=== PATIENT | female | born 1970 | race Caucasian/White ===

== ENCOUNTER 2017-03-15 05:31 | Emergency (ER) | payer MEDICARE, MEDICAID ==
[2017-03-15 05:51] VITALS: BP 156/96
--- NOTE | 2017-03-15 06:34 | EDM.PDOC ---
ED HPI GENERAL MEDICAL PROBLEM - General Chief Complaint: Respiratory Problem Stated Complaint: TROUBLE BREATHING Time Seen by Provider: 03/15/17 05:45 Source of Information: Reports: Patient, Family History Limitations: Reports: No Limitations - History of Present Illness INITIAL COMMENTS - FREE TEXT/NARRATIVE: 46 years old w f came to the ed with her SO unable to sleep. Pt is snooring loud at nigh and stops breathing a t times. She is "twitching" intermittently. Pt drinks and smokes daily, uses THC products. Pt is a poor historian, no other acute medical issues. Onset: Gradual Onset Date: 03/12/17 Onset Time: 23:00 Duration: Day(s): Location: Reports: Generalized Severity: Mild Improves with: Reports: None Worsens with: Reports: None Associated Symptoms: Reports: Cough Neck Pain Score (Numeric/FACES): 10 - Related Data Allergies Allergy/AdvReac Type Severity Reaction Status Date / Time No Known Allergies Allergy Verified 03/15/17 05:44 Home Meds: Home Meds Gabapentin [Gabapentin] 03/15/17 [History] Methylphenidate [Ritalin] 20 mg PO TID 03/15/17 [History] Pregabalin [Lyrica] 150 mg PO DAILY 03/15/17 [History] Zolpidem [Ambien] 10 mg PO BEDTIME 03/15/17 [History] buPROPion [Wellbutrin XL] 150 mg PO DAILY 03/15/17 [History] Past Medical History [facility] History: Reports: , Other (See Below) Other OB/BYN History: elective abortions x 2 Musculoskeletal History: Reports: Fracture Neurological History: Reports: Migraines Psychiatric History: Reports: Anxiety, Bipolar, Depression, Panic Attack - Infectious Disease History Infectious Disease History: Reports: Hepatitis C - Past Surgical History GI Surgical History: Reports: Cholecystectomy Social & Family History - Family History Family Medical History: Noncontributory - Tobacco Use Smoking Status *Q: Current Every Day Smoker Years of Tobacco use: 30 Packs/Tins Daily: 2 Second Hand Smoke Exposure: Yes - Caffeine Use Caffeine Use: Reports: Coffee - Alcohol Use Days Per Week of Alcohol Use: 1 Number of Drinks Per Day: 12 Total Drinks Per Week: 12 - Recreational Drug Use Recreational Drug Use: No ED ROS GENERAL - Review of Systems Review Of Systems: See Below Constitutional: Reports: No Symptoms HEENT: Reports: No Symptoms Respiratory: Reports: Cough Cardiovascular: Reports: No Symptoms Endocrine: Reports: No Symptoms GI/Abdominal: Reports: No Symptoms : Reports: No Symptoms Musculoskeletal: Reports: No Symptoms Skin: Reports: No Symptoms Neurological: Reports: No Symptoms Psychiatric: Reports: No Symptoms Hematologic/Lymphatic: Reports: No Symptoms Immunologic: Reports: No Symptoms ED EXAM, GENERAL - Physical Exam Exam: See Below Exam Limited By: No Limitations General Appearance: Obese (morbid) Eye Exam: Bilateral Eye: Normal Inspection Ears: Normal External Exam Ear Exam: Bilateral Ear: Auricle Normal Nose: Normal Inspection, Normal Mucosa Throat/Mouth: Normal Inspection Head: Atraumatic Neck: Normal Inspection Respiratory/Chest: No Respiratory Distress, Lungs Clear, Normal Breath Sounds Cardiovascular: Tachycardia Peripheral Pulses: 1+: Femoral (L), Femoral (R) GI/Abdominal: Normal Bowel Sounds (Female) Exam: Deferred Rectal (Female) Exam: Deferred Back Exam: Normal Inspection, Full Range of Motion Extremities: Normal Inspection, Normal Range of Motion Neurological: Alert, Oriented, CN II-XII Intact, Normal Cognition, Normal Gait Psychiatric: Anxious Skin Exam: Warm, Dry, Intact, Normal Color, No Rash Lymphatic: No Adenopathy Course - Vital Signs Text/Narrative:: 46 years old w f came to the ed with her SO unable to sleep. Pt is snoring loud at nigh and stops breathing a t times. She is "twitching" intermittently. Pt drinks and smokes daily, uses THC products. Pt is a poor historian, no other acute medical issues. PE: Morbid obese, anxious, dry mucodal membranes Labs: Potassium was 3.1 CBC 12.5 UDS + THC Impression: Dehydration, Hypokalemia, anxiety Tx: Potassium, water po. Reexam: improved, HR still 117,pt refused ECG, NS or further w/u Plan: D/C with instructions Last Recorded V/S: Last Vital Signs Temp 37.3 C 03/15/17 05:45 Pulse 117 H 03/15/17 08:19 Resp 28 H 03/15/17 05:45 BP 156/96 H 03/15/17 05:45 Pulse Ox 94 L 03/15/17 05:45 - Orders/Labs/Meds Labs: Laboratory Tests 05/29/17 05/29/17 05/29/17 Range/Units 06:15 06:15 06:50 WBC 12.2 H (4.5-12.0) X10-3/uL RBC 3.69 (3.23-5.20) x10(6)uL Hgb 11.3 L (11.5-15.5) g/dL Hct 33.3 (30.0-51.3) % MCV 90.4 (80-96) fL MCH 30.7 (27.7-33.6) pg MCHC 34.0 (32.2-35.4) g/dL RDW 14.0 (11.5-15.5) % Plt Count 270 (125-369) X10(3)uL MPV 7.2 L (7.4-10.4) fL Add Manual Diff Yes Neutrophils % (Manual) 81 (46-82) % Lymphocytes % (Manual) 11 L (13-37) % Monocytes % (Manual) 5 (4-12) % Eosinophils % (Manual) 1 (0-5) % Basophils % (Manual) 2 (0-2) % Sodium (135-145) mmol/L Potassium (3.5-5.3) mmol/L Chloride (100-110) mmol/L Carbon Dioxide (23-29) mmol/L BUN (5-20) mg/dL Creatinine (0.6-1.3) mg/dL Est Cr Clr Drug Dosing mL/min Estimated GFR (MDRD) (>60) BUN/Creatinine Ratio (9-20) Glucose (80-116) mg/dL Calcium (8.6-10.2) mg/dL B-Natriuretic Peptide (0-100) pg/mL Urine Color Yellow (YELLOW) Urine Appearance Clear (CLEAR) Urine pH 6.0 (5.0-6.5) Ur Specific [place] 1.015 (1.010-1.025) Urine Protein Negative (NEGATIVE) mg/dL Urine Glucose (UA) Normal (NEGATIVE) mg/dL Urine Ketones Negative (NEGATIVE) mg/dL Urine Occult Blood Large H (NEGATIVE) Urine Nitrite Negative (NEGATIVE) Urine Bilirubin Negative (NEGATIVE) Urine Urobilinogen Normal (NEGATIVE) mg/dL Ur Leukocyte Esterase Negative (NEGATIVE) Urine RBC 30-40 H (0) Urine WBC 0-5 (0) Ur Squamous Epith Cells Few H (NS,R,O) Urine Bacteria Few H (NS) Urine Opiates Screen Negative (NEGATIVE) Ur Oxycodone Screen Negative (NEGATIVE) Ur Propoxyphene Screen Negative (NEGATIVE) Ur Barbituates Screen Negative (NEGATIVE) Ur Tricyclics Screen Negative (NEGATIVE) Ur Phencyclidine Scrn Negative (NEGATIVE) Ur Amphetamine Screen Negative (NEGATIVE) Urine MDMA Screen Negative (NEGATIVE) U Benzodiazepines Scrn Negative (NEGATIVE) U Cocaine Metab Screen Negative (NEGATIVE) U Marijuana (THC) Screen Positive H (NEGATIVE) Ethyl Alcohol (<0.01) % 03/15/17 03/15/17 03/15/17 Range/Units 06:50 06:50 06:50 WBC (4.5-12.0) X10-3/uL RBC (3.23-5.20) x10(6)uL Hgb (11.5-15.5) g/dL Hct (30.0-51.3) % MCV (80-96) fL MCH (27.7-33.6) pg MCHC (32.2-35.4) g/dL RDW (11.5-15.5) % Plt Count (125-369) X10(3)uL MPV (7.4-10.4) fL Add Manual Diff Neutrophils % (Manual) (46-82) % Lymphocytes % (Manual) (13-37) % Monocytes % (Manual) (4-12) % Eosinophils % (Manual) (0-5) % Basophils % (Manual) (0-2) % Sodium 137 (135-145) mmol/L Potassium 3.1 L (3.5-5.3) mmol/L Chloride 106 (100-110) mmol/L Carbon Dioxide 23 (23-29) mmol/L BUN 6 (5-20) mg/dL Creatinine 0.6 (0.6-1.3) mg/dL Est Cr Clr Drug Dosing 89.35 mL/min Estimated GFR (MDRD) > 60 (>60) BUN/Creatinine Ratio 10.0 (9-20) Glucose 123 H (80-116) mg/dL Calcium 8.8 (8.6-10.2) mg/dL B-Natriuretic Peptide 271 H (0-100) pg/mL Urine Color (YELLOW) Urine Appearance (CLEAR) Urine pH (5.0-6.5) Ur Specific [place] (1.010-1.025) Urine Protein (NEGATIVE) mg/dL Urine Glucose (UA) (NEGATIVE) mg/dL Urine Ketones (NEGATIVE) mg/dL Urine Occult Blood (NEGATIVE) Urine Nitrite (NEGATIVE) Urine Bilirubin (NEGATIVE) Urine Urobilinogen (NEGATIVE) mg/dL Ur Leukocyte Esterase (NEGATIVE) Urine RBC (0) Urine WBC (0) Ur Squamous Epith Cells (NS,R,O) Urine Bacteria (NS) Urine Opiates Screen (NEGATIVE) Ur Oxycodone Screen (NEGATIVE) Ur Propoxyphene Screen (NEGATIVE) Ur Barbituates Screen (NEGATIVE) Ur Tricyclics Screen (NEGATIVE) Ur Phencyclidine Scrn (NEGATIVE) Ur Amphetamine Screen (NEGATIVE) Urine MDMA Screen (NEGATIVE) U Benzodiazepines Scrn (NEGATIVE) U Cocaine Metab Screen (NEGATIVE) U Marijuana (THC) Screen (NEGATIVE) Ethyl Alcohol < 0.01 (<0.01) % Meds: Medications Discontinued Medications Generic Name Dose Route Start Last Admin Trade Name Freq PRN Reason Stop Dose Admin Potassium Chloride 40 meq 03/15/17 07:59 03/15/17 08:16 Klor-Con M20 PO 03/15/17 08:00 40 meq ONETIME ONE Administration Departure - Departure Time of Disposition: 08:00 Disposition: Home, Self-Care 01 Condition: good Clinical Impression: Hypokalemia, Sleep apnea, Tachycardia, Dehydration - Discharge Information Referrals: PCP,Not In Area [Primary Care Provider] - Forms: ED Department Discharge Additional Instructions: Please f/u with your doctor in next 1-3 days to be scheduled for a sleep study. please do not drink or smoke. Please increase water intake. Please come back if your symptoms get acutely worse.
[2017-03-15] MEDS ORDERED: Potassium Chloride 20 MEQ Tab.ER PO ONE (07:59)
== END 2017-03-15 08:25 | disposition home or self-care (01) ==
LOC: FB.ED 05:31
DX: G47.30 Sleep apnea, unspecified (principal); E87.6 Hypokalemia; R00.0 Tachycardia, unspecified; E86.0 Dehydration; G43.909 Migraine, unspecified, not intractable, without status migrainosus; F41.9 Anxiety disorder, unspecified; F32.9 Major depressive disorder, single episode, unspecified; F17.210 Nicotine dependence, cigarettes, uncomplicated
CPT/HCPCS: 36415; 80048; 80305; 81001; 83880; 85025; 99283; 99284; A9270; G0480